=== PATIENT | male | born 1990 | race Caucasian/White ===

== ENCOUNTER 2022-11-20 22:13 | Emergency (ER) | payer SELFPAY ==
[~2022-11-20] VITALS: Ht 162.5 cm; Wt 108.8 kg
--- NOTE | 2022-11-20 22:30 | ED Integumentary General ---
General Chief Complaint: Allergic Reaction Stated Complaint: RIGHT EYE SWELLING Source: patient Exam Limitations: no limitations History of Present Illness Date Seen by Provider: Nov 20, 2022 Time Seen by Provider: 22:30 Initial Comments Patient is a 32-year-old male who presents to the emergency room with a chief complaint of right eyelid swelling, left middle finger discomfort and swelling after bee stings yesterday. He states he was also stung at the tip of his nose. Patient was chopping wood and when he was moving the wood a swarm of what he believes was bees came up and stung him in the face and left hand. Patient states he has been using some ice for the swelling but it has not helped. He does endorse a little blurry vision but no eye pain. No recent fevers or chills. No URI symptoms. He states he has never been stung before. He denies itching, hives. He denies shortness of breath, chest pain. He is not lightheaded or dizzy or having palpitations. He has not taken any medications for the stings. Timing/Duration: yesterday Severity: moderate Location: face (Right eye) Possible Cause: insect sting Associated Symptoms: swelling/mass/lumps, other (Blurry vision) Allergies and Home Medications Allergies Coded Allergies: No Known Drug Allergies (Unverified , 11/20/22) Patient Home Medication List Home Medication List Reviewed: Yes Clobetasol Propionate/Emoll (Clobetasol Emollient 0.05% Crm) 0.05 % Cream..g., 1 EA TP Q4H Prescribed by: CHUCKY NGUYEN on 11/20/222247 Epinephrine (Epipen 2-Arnoldo) 0.3 Mg/0.3 Ml Auto.injct, 0.3 MG IJ ONCE PRN for severe allergic reaction Prescribed by: CHUCKY NGUYEN on 11/20/222247 Prednisone (Prednisone) 10 Mg Tab.ds.pk, 10 MG PO DAILY Prescribed by: CHUCKY NGUYEN on 11/20/222247 Review of Systems Review of Systems Constitutional: see HPI EENTM: see HPI, other (Right upper and lower eyelid swelling. Discomfort at the tip of his nose) Respiratory: no symptoms reported Gastrointestinal: no symptoms reported Genitourinary: no symptoms reported Musculoskeletal: other (left middle finger swelling and discomfort at the PIP joint) Skin: rash Psychiatric/Neurological: No Symptoms Reported Physical Exam Vital Signs Vital Signs - First Documented 11/20/22 22:25 Temp 36.5 Pulse 62 Resp 16 B/P (MAP) 132/83 (99) Pulse Ox 98 O2 Delivery Room Air Capillary Refill : General Appearance: WD/WN, no apparent distress HEENT: PERRL/EOMI, normal ENT inspection, other (Patient has significant upper and lower right eyelid swelling with mild erythema. There is a nidus of "sting" to the right of center of the upper eyelid. He does have some conjunctival injection right lower lid. Mild erythema and swelling to the tip of the nose) Neck: supple Cardiovascular: regular rate, rhythm Respiratory: lungs clear, normal breath sounds, no respiratory distress, no accessory muscle use Extremities: normal range of motion, other (mild swelling erythema of the left 3rd finger around the PIP joint. Intact ROM and strength and sensation) Neurologic/Psychiatric: alert, normal mood/affect, oriented x 3 Skin: warm/dry Progress/Results/Core Measures Results/Orders My Orders Orders - CHUCKY NGUYEN MD Dexamethasone Injection (Decadron Injec (11/20/22 22:35) Vital Signs/I&O 11/20/22 11/20/22 22:25 23:02 Temp 36.5 Pulse 62 62 Resp 16 16 B/P (MAP) 132/83 (99) 132/83 Pulse Ox 98 98 O2 Delivery Room Air Room Air Progress Progress Note : Time: 22:38 Progress Note Patient seen and evaluated by me. No concerning findings for anaphylaxis. Evaluation today includes physical exam. Pertinent physical exam findings significant right eyelid upper and lower edema, the eye is swollen shut. I was able to manually open the lid and inspect the globe. Pupils are equal round reactive to light and accommodation. Extraocular muscles are intact without eye pain with movement. He does have conjunctival injection of the right lower lid. He has what appears to be the origin of stain just to the right of center of the right upper lid. He also has a little bit of swelling over the bridge and tip of the nose with mild erythema consistent with the sting. His heart is regular, lungs are clear, abdomen is soft. Vital signs are stable. His left hand reveals some swelling and erythema over the third finger dorsal aspect with intact range of motion and strength and sensation. Differential diagnosis based on history and physical exam, insect/bee stings/local inflammation Patient was given 50 mg of prednisone here in the emergency department. He was advised to take [id number] Zyrtec for the inflammation. He was provided a prescription for a short prednisone taper as well as advised to use ice packs for the swelling. I did also write for some mild steroid cream for the swelling of his right eyelid. Patient was advised of the side effects of steroids to include irritability, sleep disturbance, increased appetite. Return precautions were provided in both verbal and written format. Patient was also given an EpiPen for concern of further envenomation. He verbalized understanding and is comfortable with plan of care. All questions are sought and answered. The pat ient has no concerning findings for anaphylaxis. Departure Impression Primary Impression: Local reaction to bee sting Qualified Codes: T63.441A - Toxic effect of venom of bees, accidental (unintentional), initial encounter Disposition: 01 HOME, SELF-CARE Condition: Stable Departure-Patient Inst. Decision time for Depature: 22:41 Referrals: [facility],LOCAL PHYSICIAN (PCP) Primary Care Physician Patient Instructions: Insect bites and stings Add. Discharge Instructions: Apply ice packs 20 minutes at a time to the right eye to help with swelling. Do this every 1-2 hours over the next 24 hours. I have given you a shot of steroids today which will help with the swelling. I am also giving you a tapering dose of prednisone/steroid to take over the next several days. You should get some uvkf-lon-[id number] generic Zyrtec/cetirizine. Take 10 mg tablets twice daily for the next 7 days. You can apply the steroid ointment as well around the eyelid for swelling. Do this only for the next 5 days. You can stop earlier if the swelling is gone. I have also prescribed you an epinephrine pen. The pharmacist or pharmacy billing adjudicator at [facility] can instruct you on how to use this. If you get a repeat staying that causes you to feel palpitations, short of breath, lightheaded or dizzy, this would be an indication to use the pen and then come to the emergency department. Return to the Emergency Department for re-evaluation if you develop worsening eye pain, fever, or any other emergent concerning symptoms. Scripts Clobetasol Propionate/Emoll (Clobetasol Emollient 0.05% Crm) 0.05 % Cream..g. 1 EA TP Q4H for 5 Days, #15 GM Prov: CHUCKY NGUYEN MD 11/20/22 Prednisone (Prednisone) 10 Mg Tab.ds.pk 10 MG PO DAILY, #21 EA Take 6 tabs(60mg)daily,decrease by 1 tab(10MG)daily. Prov: CHUCKY NGUYEN MD 11/20/22 Epinephrine (Epipen 2-Arnoldo) 0.3 Mg/0.3 Ml Auto.injct 0.3 MG IJ ONCE PRN for severe allergic reaction, #1 ML Prov: CHUCKY NGUYEN MD 11/20/22 Work/School Note: Work Release Form Date Seen in the Emergency Department: Nov 20, 2022 Return to Work: Nov 22, 2022 CHUCKY NGUYEN MD Nov 20, 2022 22:30
[2022-11-20] MEDS ORDERED: dexAMETHasone INJ 4 MG/ML SDV IM STA (22:35)
[2022-11-20] MEDS ORDERED: PRED10TA22 PO (22:48)
[2022-11-20] MEDS ORDERED: CLOB15CR3 TP (22:48)
[2022-11-20] MEDS ORDERED: EPIN0.3P3 IJ (22:48)
[2022-11-20 23:02] VITALS: BP 132/83
== END 2022-11-20 23:07 | disposition home or self-care (01) ==
LOC: ER 22:16
DX: T63.441A Toxic effect of venom of bees, accidental (unintentional), initial encounter (principal)
CPT/HCPCS: 99284

== ENCOUNTER 2023-02-02 02:11 | Emergency (ER) | payer SELFPAY ==
[~2023-02-02] VITALS: Ht 165 cm; Wt 108.8 kg
[~2023-02-02 02:11] MED LIST: CLOB15CR3 TP; EPIN0.3P3 IJ; PRED10TA22 PO
[2023-02-02 02:34] VITALS: BP 123/80
[2023-02-02] MEDS ORDERED: KETOROLAC INJ 60 MG/2 ML VIAL IM STA (02:42)
[2023-02-02] MEDS ORDERED: RX-CYCLOBENZAPRINE 10 MG (FLEXERIL) TAB PPK#3 PO STA (02:42)
[2023-02-02] MEDS ORDERED: CYCL10TA25 PO (02:45)
[2023-02-02] MEDS ORDERED: KETO10TA PO (02:45)
--- NOTE | 2023-02-02 02:45 | ED Neck-Back Pain/Injury ---
General Chief Complaint: Head/Cervical Problems Stated Complaint: PX ON BACK OF HEAD/NECK,SWOLLEN Nursing Triage Note: PATIENT VERBALIZED POSTERIOR HEAD/NECK PAIN STARTING SATURDAY MORNING/ INTERMITTENT. PAIN WORSE TODAY. STATES UNABLE TO TURN NECK AND NOW THROAT SORE. Source of Information: Patient History of Present Illness Date Seen by Provider: Feb 02, 2023 Time Seen by Provider: 02:33 Initial Comments PT ARRIVES VIA POV FROM HOME--DROVE SELF HERE PT STATES HE WOKE UP YESTERDAY MORNING, WITH PAIN IN POSTERIOR NECK AREA--ON SIDES OF NECK--LEFT > RIGHT THE PAIN GOT BETTER AND WENT AWAY THE DAY PROGRESSED HE DID NOT HAVE ANY PAIN ON WAKING THIS MORNING, BUT HAS GRADUALLY DEVELOPED PAIN THE DAY HAS GONE ON TODAY STATES IT HURTS TO TURN HIS NECK, AND SWALLOWING MAKES THE BACK OF HIS NECK HURT HE DOES NOT HAVE ANY ACTUAL THROAT PAIN OR ACTUAL DIFFICULTY SWALLOWING NO DIFFICULTY BREATHING. NO INJURY OR UNUSUAL ACTIVITY--PT DOES LAWN CARE NO PARESTHESIAS OR MOTOR DEFICITS NO RADIATION OF PAIN NO HEADACHE NO VISION CHANGES NO DIZZINESS NO FEVER/SWEATS/CHILLS STATES HE HAD A MILD COLD LAST WEEK, BUT DID NOT SEEK CARE AND THOSE SYMPTOMS ARE GONE NO HISTORY OF SIMILAR PT HAS NOT TAKEN ANYTHING FOR PAIN OR TREATED THIS PROBLEM IN ANY WAY NO CHRONIC MEDICAL PROBLEMS Other Comments PCP: [facility] Allergies and Home Medications Allergies Coded Allergies: No Known Drug Allergies (Unverified , 11/20/22) Patient Home Medication List Home Medication List Reviewed: Yes Clobetasol Propionate/Emoll (Clobetasol Emollient 0.05% Crm) 0.05 % Cream..g., 1 EA TP Q4H Prescribed by: CHUCKY NGUYEN on 11/20/222247 Cyclobenzaprine HCl (Cyclobenzaprine HCl) 10 Mg Tablet, 10 MG PO Q8H PRN for SPASMS Prescribed by: JALEESA ROBERSON on 02/02/23 024 Epinephrine (Epipen 2-Arnoldo) 0.3 Mg/0.3 Ml Auto.injct, 0.3 MG IJ ONCE PRN for severe allergic reaction Prescribed by: CHUCKY NGUYEN on 11/20/222247 Ketorolac Tromethamine (Ketorolac Tromethamine) 10 Mg Tablet, 10 MG PO Q6H Prescribed by: JALEESA ROBERSON on 02/02/23 0245 Prednisone (Prednisone) 10 Mg Tab.ds.pk, 10 MG PO DAILY Prescribed by: CHUCKY NGUYEN on 11/20/22 8748 Review of Systems Constitutional: no symptoms reported EENTM: no symptoms reported Respiratory: no symptoms reported Cardiovascular: no symptoms reported Gastrointestinal: no symptoms reported Genitourinary: no symptoms reported Musculoskeletal: see HPI, neck pain Skin: no symptoms reported Psychiatric/Neurological: No Symptoms Reported Past Cemavxv-Geeyuh-Goqiwk Hx Patient Social History Tobacco Use?: No Use of E-Cig and/or Vaping dev: No Substance use?: No Alcohol Use?: No Past Medical History Surgery/Hospitalization HX: DENIES Surgeries: No Respiratory: No Cardiac: No Neurological: No Genitourinary: No Gastrointestinal: No Musculoskeletal: No Endocrine: No HEENT: No Cancer: No Psychosocial: No Integumentary: No Blood Disorders: No Physical Exam Vital Signs Vital Signs - First Documented 02/02/23 02:34 Pulse 68 Resp 18 B/P (MAP) 123/80 (94) Pulse Ox 98 Capillary Refill : Less Than 3 Seconds Height, Weight, BMI Height: '" Weight: lbs. oz. kg; 39.00 BMI Method: General Appearance: No Apparent Distress, WD/WN, Other (DOES NOT APPEAR ILL OR TO BE IN ANY DISCOMFORT OR DISTRESS) HEENT: PERRL/EOMI, TMs Normal, Normal ENT Inspection, Pharynx Normal, Other (NO TRISMUS) Neck: Limited Range of Motion, Tender Lateral; No Tender Midline, No Thyromegaly; Other (TENDERNESS TO BILATERAL PARAVERTEBRAL MUSCLES OF POSTERIOR NECK--WITH MUSCLE SPASMS--LEFT > RIGHT. NO VERTEBRAL OR MIDLINE TENDERNESS. NO SWELLING NOTED. NO RASH OR SKIN LESIONS NOTED. HE HAS FULL FLEXION AND EXTENSION WITHOUT DIFFICULTY. HE HAS LIMITED ROTATION OF NECK DUE TO PAIN AND SPASMS--LEFT> RIGHT. NO ADENOPATHY. 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 Skin: Normal Color (), Warm/Dry; No Rash Progress/Results/Core Measures Results/Orders My Orders Orders - JALEESA ROBERSON DO Ketorolac Injection (Ketorolac Injection (02/02/23 02:42) Rx-Cyclobenzaprine Tablet (Rx-Flexeril T (02/02/23 02:42) Vital Signs/I&O 02/02/23 02:34 Pulse 68 Resp 18 B/P (MAP) 123/80 (94) Pulse Ox 98 Blood Pressure Mean: 94 Progress Progress Note : Progress Note VITALS STABLE, AFEBRILE GIVEN TORADOL IM NO INJURY OR BONY TENDERNESS NO SIGNS OF INFECTION NO MENINGEAL SIGNS DISCUSSED ANTICIPATED COURSE, SYMPTOMATIC TREATMENT, MEDICATIONS, NEED FOR FOLLOW UP AND RETURN PRECAUTIONS. Departure Impression Primary Impression: Posterolateral cervical muscle strain Disposition: HOME, SELF-CARE Condition: Stable Departure-Patient Inst. Decision time for Depature: 02:44 Referrals: NO,LOCAL PHYSICIAN (PCP/Family) Primary Care Physician Patient Instructions: Generalized Neck Pain, Using Heat for Pain Add. Discharge Instructions: MOIST HEAT TO AREA AT 20 MINUTE INTERVALS FOLLOW UP WITH [facility] IN 2-3 DAYS IF NO BETTER, RETURN TO ER IF WORSE All discharge instructions reviewed with patient and/or family. Voiced understanding. Scripts Cyclobenzaprine HCl (Cyclobenzaprine HCl) 10 Mg Tablet 10 MG PO Q8H PRN for SPASMS, #15 TAB 0 Refills Prov: JALEESA ROBERSON DO 02/02/23 Ketorolac Tromethamine (Ketorolac Tromethamine) 10 Mg Tablet 10 MG PO Q6H for Pain, #15 TAB Prov: JALEESA ROBERSON DO 02/02/23 JALEESA ROBERSON DO Feb 02, 2023 02:45
== END 2023-02-02 03:12 | disposition home or self-care (01) ==
LOC: EDUNIT# 02:11 → ER 02:14
DX: S16.1XXA Strain of muscle, fascia and tendon at neck level, initial encounter (principal); X58.XXXA Exposure to other specified factors, initial encounter
CPT/HCPCS: 96372; 99284